=== PATIENT | female | born 1985 | race Caucasian/White ===

== ENCOUNTER 2018-03-01 16:17 | Inpatient (IN) | payer SELFPAY ==
[2018-03-01] MEDS ORDERED: 0.9 % SODIUM CHLORIDE 10 ML DISP.SYRIN. IV (16:45)
[2018-03-01] MEDS: ONDANSETRON PF 4 MG/2 ML VIAL. IV ×3 (17:00→21:42)
[2018-03-01] MEDS: IV NORMAL SALINE 1000ML BAG 1,000 ML IV ×2 (17:00→21:45)
[2018-03-01] MEDS: fentaNYL PF VIAL 100 MCG/2 ML VIAL IV ×8 (17:04→23:13)
[2018-03-01 17:14] LABS: ADD MAN DIFF? NO
[2018-03-01 17:17] LABS: BASO % 0 % (0-3); EOS # 0.2 x10^3/uL (0.0-0.7); EOS % 2 % (0-3); HEMATOCRIT 43.3 % (36.0-47.0); HEMOGLOBIN 14.6 g/dL (12.0-15.5); LYMPH # 1.5 x10^3/uL (1.0-4.8); LYMPH % 13 % (24-48); MEAN CORPUSCULAR HEMOGLOBIN 31 pg (25-35); MEAN CORPUSCULAR HGB CONC 34 g/dL (31-37); MEAN CORPUSCULAR VOLUME 92 fL (79-100); MONO # 0.6 x10^3/uL (0.0-1.1); MONO % 6 % (0-9); NEUT # 8.9 x10^3uL (1.8-7.7); NEUT % 79 % (31-73); PLATELET COUNT 284 x10^3/uL (140-400); RED BLOOD COUNT 4.72 x10^6/uL (3.50-5.40); RED CELL DISTRIBUTION WIDTH 14.1 % (11.5-14.5); WHITE BLOOD COUNT 11.3 x10^3/uL (4.0-11.0)
[2018-03-01 17:26] LABS: URINE HCG POC HCG NEGATIVE (Negative)
[2018-03-01 17:27] LABS: BILIRUBIN,URINE NEGATIVE (NEG); CLARITY,URINE CLEAR; COLOR,URINE YELLOW; GLUCOSE,URINE >=1000 mg/dL (NEG); NITRITE,URINE NEGATIVE (NEG); PROTEIN,URINE NEGATIVE (NEG-TRACE); UROBILINOGEN,URINE 0.2 mg/dL (0.2 mg/dL)
[2018-03-01 17:28] LABS: ANION GAP 12 (6-14); BLOOD UREA NITROGEN 11 mg/dL (7-20); CALCIUM 8.8 mg/dL (8.5-10.1); CARBON DIOXIDE 24 mmol/L (21-32); CHLORIDE 99 mmol/L (98-107); CREATININE 0.8 mg/dL (0.6-1.0); GFR 82.1; GLUCOSE 324 mg/dL (70-99); POTASSIUM 4.4 mmol/L (3.5-5.1); SODIUM 135 mmol/L (136-145)
[2018-03-01 17:32] LABS: BACTERIA,URINE FEW /HPF (0-FEW); RBC,URINE 0 /HPF (0-2); SQUAMOUS EPITHELIAL CELL,UR MOD /LPF; WBC,URINE RARE /HPF (0-4); YEAST,URINE PRESENT /HPF
[2018-03-01 17:34] LABS: ALBUMIN 3.5 g/dL (3.4-5.0); ALK PHOS 111 U/L (46-116); ALT (SGPT) 218 U/L (14-59); AST (SGOT) 199 U/L (15-37); DIRECT BILIRUBIN 0.2 mg/dL (0.0-0.2); LIPASE 280 U/L (73-393); TOTAL BILIRUBIN 0.8 mg/dL (0.2-1.0); TOTAL PROTEIN 7.7 g/dL (6.4-8.2)
[2018-03-01 17:36] LABS: TROPONINI < 0.017 ng/mL (0.000-0.055)
[2018-03-01 17:42] LABS: CKMB MASS 1.3 ng/mL (0.0-3.6); CREATINE KINASE 47 U/L (26-192)
[2018-03-01] MEDS: PIPERACILLIN/TAZOBACTAM 3.375 GM in IV NORMAL SALINE 50ML 50 ML IV (20:06)
[2018-03-01 22:16] LABS: POC GLUCOSE 227 mg/dL (70-99)
[2018-03-02] MEDS: KETOROLAC 30 MG/ML INJ. IV ×3 (00:07→11:43)
[2018-03-02] MEDS: PIPERACILLIN/TAZOBACTAM 3.375 GM in IV NORMAL SALINE 50ML 50 ML IV ×4 (00:07→17:53)
[2018-03-02] MEDS: IV NORMAL SALINE 1000ML BAG 1,000 ML IV ×2 (05:46→11:31)
[2018-03-02] MEDS: ONDANSETRON PF 4 MG/2 ML VIAL. IV (07:26)
[2018-03-02] MEDS: fentaNYL PF VIAL 100 MCG/2 ML VIAL IV ×4 (07:33→15:52)
[2018-03-02 07:55] LABS: POC GLUCOSE 214 mg/dL (70-99)
[2018-03-02] MEDS ORDERED: ONDANSETRON PF 4 MG/2 ML VIAL. IV (08:30)
[2018-03-02] MEDS ORDERED: fentaNYL PF VIAL 100 MCG/2 ML VIAL IV (08:30)
[2018-03-02] MEDS: IV RINGERS,LACTATED 1000ML 1,000 ML IV ×2 (08:30→15:10)
[2018-03-02] MEDS ORDERED: LIDOCAINE 1% PF 2 ML VIAL. ID (08:30)
[2018-03-02] MEDS ORDERED: DEXTROSE 50% 25 GM / 50ML DISP.SYRIN. IV (09:30)
[2018-03-02 11:39] LABS: POC GLUCOSE 161 mg/dL (70-99)
[2018-03-02] MEDS: INSULIN ASPART 300 UNITS/3 ML INSULN.PEN SQ ×3 (11:41→21:03)
[2018-03-02] MEDS: amLODIPine BESYLATE 10 MG TABLET PO (11:43)
[2018-03-02] MEDS: LACTOBACILLUS RHAMNOSUS GG 1 CAPSULE. PO ×2 (12:00→20:46)
[2018-03-02] MEDS ORDERED: SURGICEL HEMOSTAT 4X8 EACH. (12:06)
[2018-03-02] MEDS ORDERED: DEXAMETHASONE SOD PHOS 20 MG/5 ML VIAL. (13:21)
[2018-03-02] MEDS ORDERED: ROCURONIUM 50 MG/5 ML VIAL. (13:21)
[2018-03-02] MEDS ORDERED: fentaNYL PF VIAL 250 MCG/5 ML VIAL (13:21)
[2018-03-02] MEDS ORDERED: ONDANSETRON PF 4 MG/2 ML VIAL. (13:22)
[2018-03-02] MEDS ORDERED: PROPOFOL 20 ML IV (13:22)
[2018-03-02] MEDS: BUPIVACAINE-EPI 0.25%-1:200000 50 ML VIAL. (14:20)
[2018-03-02] MEDS: IOHEXOL 300 MG/ML 100ML VIAL. (14:20)
[2018-03-02] MEDS ORDERED: GLYCOPYRROLATE 1 MG/5 ML VIAL. (14:54)
[2018-03-02] MEDS ORDERED: KETOROLAC 30 MG/ML INJ FOR OR. INJ (14:54)
[2018-03-02] MEDS ORDERED: NEOSTIGMINE METHYLSULFATE 5 MG/5 ML SYRINGE. (14:54)
[2018-03-02] MEDS ORDERED: SEVOFLURANE 31 TO 60 MINUTES. IH (15:07)
[2018-03-02 15:09] LABS: POC GLUCOSE 197 mg/dL (70-99)
[2018-03-02] MEDS: PROCHLORPERAZINE 10 MG/2 ML VIAL. IV ×2 (15:13→15:51)
[2018-03-02] MEDS ORDERED: oxyCODONE/APAP 5/325 1 TAB TABLET PO (15:15)
[2018-03-02 16:42] LABS: POC GLUCOSE 239 mg/dL (70-99)
[2018-03-02] MEDS: oxyCODONE/APAP 5/325 1 TAB TABLET PO ×2 (17:59→22:00)
[2018-03-02 20:46] LABS: POC GLUCOSE 354 mg/dL (70-99)
[2018-03-02] MEDS: ACETAMINOPHEN 500 MG TABLET PO (20:46)
[2018-03-03] MEDS: PIPERACILLIN/TAZOBACTAM 3.375 GM in IV NORMAL SALINE 50ML 50 ML IV ×2 (00:10→06:08)
[2018-03-03 04:35] LABS: BASO # 0.1 x10^3/uL (0.0-0.2); BASO % 0 % (0-3); EOS % 0 % (0-3); HEMATOCRIT 40.4 % (36.0-47.0); HEMOGLOBIN 13.4 g/dL (12.0-15.5); LYMPH # 1.2 x10^3/uL (1.0-4.8); LYMPH % 7 % (24-48); MEAN CORPUSCULAR HEMOGLOBIN 31 pg (25-35); MEAN CORPUSCULAR HGB CONC 33 g/dL (31-37); MEAN CORPUSCULAR VOLUME 93 fL (79-100); MONO # 0.4 x10^3/uL (0.0-1.1); MONO % 2 % (0-9); NEUT % 91 % (31-73); PLATELET COUNT 285 x10^3/uL (140-400); RED BLOOD COUNT 4.35 x10^6/uL (3.50-5.40); RED CELL DISTRIBUTION WIDTH 14.3 % (11.5-14.5); WHITE BLOOD COUNT 17.7 x10^3/uL (4.0-11.0)
[2018-03-03 04:36] LABS: ADD MAN DIFF? YES
[2018-03-03] MEDS: oxyCODONE/APAP 5/325 1 TAB TABLET PO ×2 (04:40→08:30)
[2018-03-03 04:49] LABS: ANION GAP 9 (6-14); BLOOD UREA NITROGEN 11 mg/dL (7-20); CALCIUM 9.2 mg/dL (8.5-10.1); CARBON DIOXIDE 25 mmol/L (21-32); CHLORIDE 101 mmol/L (98-107); CREATININE 0.8 mg/dL (0.6-1.0); GFR 82.1; GLUCOSE 243 mg/dL (70-99); POTASSIUM 4.6 mmol/L (3.5-5.1); SODIUM 135 mmol/L (136-145)
[2018-03-03 07:10] LABS: % ATYL 2 % (0-0); % BANDS 4 % (0-9); % LYMPHS 6 % (24-48); % MONOS 1 % (0-10); % SEGS 87 % (35-66); PLT ESTIMATE ADEQUATE (ADEQUATE)
[2018-03-03] MEDS: amLODIPine BESYLATE 10 MG TABLET PO (08:17)
[2018-03-03] MEDS: LACTOBACILLUS RHAMNOSUS GG 1 CAPSULE. PO (08:17)
[2018-03-03] MEDS: INSULIN ASPART 300 UNITS/3 ML INSULN.PEN SQ (08:22)
[2018-03-03 08:26] LABS: POC GLUCOSE 247 mg/dL (70-99)
[2018-03-03 11:53] LABS: POC GLUCOSE 291 mg/dL (70-99)
== END 2018-03-03 12:12 | disposition home or self-care (01) | DRG 418 ==
LOC: ER 16:17 → 4 NORTH 20:42
PROC: 0FT44ZZ Resection of Gallbladder, Percutaneous Endoscopic Approach (ICD-10-PCS; principal; 2018-03-02 10:30)
PROC: BF101ZZ Fluoroscopy of Bile Ducts using Low Osmolar Contrast (ICD-10-PCS; 2018-03-02 10:30)
DX: K80.10 Calculus of gallbladder with chronic cholecystitis without obstruction (principal); Z68.41 Body mass index [BMI] 40.0-44.9, adult; K76.0 Fatty (change of) liver, not elsewhere classified; E11.9 Type 2 diabetes mellitus without complications; E28.2 Polycystic ovarian syndrome; E66.9 Obesity, unspecified; I10 Essential (primary) hypertension; Z82.49 Family history of ischemic heart disease and other diseases of the circulatory system; Z90.710 Acquired absence of both cervix and uterus; Z98.1 Arthrodesis status; Z88.5 Allergy status to narcotic agent
CPT/HCPCS: 36415; 74176; 74300; 76705; 80048; 80076; 81001; 81025; 82553; 82962; 83690; 84484; 85007; 85025; 88304; 93005; 96361; 96365; 96375; 99291; 99291-25; J0780; J1100; J1815; J1885; J2405; J2543; J2704; J2710; J3010; J3490; J7030; J7120; Q9967

== ENCOUNTER 2018-11-06 08:46 | Emergency (ER) | payer SELFPAY ==
[~2018-11-06] VITALS: Ht 172.7 cm; Wt 117.9 kg
[~2018-11-06 08:46] MED LIST: AMLO10TA6 PO; METF500T16 PO; OXYC1TAB7 PO
[2018-11-06] MEDS ORDERED: ONDANSETRON PF 4 MG/2 ML VIAL. ONE (09:23)
--- NOTE | 2018-11-06 09:28 | PHYS DOC ---
Past Medical History Past Medical History: Diabetes-Type II, Endometriosis, Hypertension, Migraines , Ovarian Cyst, Other Additional Past Medical Histor: PCOS Past Surgical History: Cholecystectomy, , Other Additional Past Surgical Histo: OVARIAN CYST REMOVAL, SPINAL FUSION, LUMBAR HAYDE, SHOULDER SCOPE Alcohol Use: Rarely Drug Use: None Adult General Chief Complaint Chief Complaint: HEADACHE HPI HPI Patient is a 33 year old female who is presenting to the emergency Department today with complaints of a sudden onset of a severe headache that feels like pressure in her entire head. Patient states she was having intercourse this morning when the symptoms began. She has a history of high blood pressure and has not been taking her medication for the last 6 weeks. She has been trying to control her diabetes and her high blood pressure through diet and weight loss measures. She denies any numbness, tingling, weakness, confusion, problems with coordination. She denies any vision changes. She reports history of migraines states that this is not like previous headaches that she has ever had. Her only other symptoms besides head pain is nausea and vomiting. She has IUD in place and denies any concerns of , states that her last menstrual period was approximately 3 weeks ago. Review of Systems Review of Systems Constitutional: Denies fever or chills [] Eyes: Denies change in visual acuity, redness, or eye pain [] Cardiovascular: Denies chest pain GI: Denies abdominal pain, or diarrhea; reports nausea and vomiting Neurologic: See HPI Complete systems were reviewed and found to be within normal limits, except as documented in this note. Current Medications Current Medications Current Medications Medications (Trade) Dose Ordered Sig/Guy Start Time Stop Time Status Last Admin Dose Admin Dexamethasone Sodium Phosphate (Decadron) 10 mg 1X ONCE 11/06/18 12:30 11/06/18 12:31 DC 11/06/18 12:42 10 MG Fentanyl Citrate (Fentanyl 2ml Vial) 50 mcg 1X ONCE 11/06/18 09:30 11/06/18 09:31 DC 11/06/18 09:42 50 MCG Ketorolac Tromethamine (Toradol 15mg Vial) 15 mg 1X ONCE 11/06/18 12:30 11/06/18 12:31 DC 11/06/18 12:42 15 MG Labetalol HCl (Normodyne Iv Push) 10 mg 1X ONCE 11/06/18 11:00 12/13/18 11:01 DC 11/06/18 11:45 10 MG Lidocaine HCl 10 ml 1X ONCE 11/06/18 10:00 11/06/18 10:01 DC 11/06/18 11:35 10 ML Ondansetron HCl (Zofran) 4 mg STK-MED ONCE 11/06/18 09:23 11/06/18 09:25 DC Orphenadrine Citrate (Norflex) 60 mg 1X ONCE 11/06/18 12:30 11/06/18 12:31 DC 11/06/18 12:42 60 MG Prochlorperazine Edisylate (Compazine) 10 mg 1X ONCE 11/06/18 10:45 11/06/18 10:46 DC 11/06/18 11:31 10 MG Sodium Chloride 500 ml @ 500 mls/hr 1X ONCE 11/06/18 12:30 11/06/18 13:29 DC 11/06/18 12:41 500 MLS/HR Allergies Allergies Allergies Coded Allergies Type Severity Reaction Last Updated Verified morphine Allergy Intermediate Itching 11/06/18 Yes Physical Exam Physical Exam Constitutional: Well developed, well nourished, no acute distress, non-toxic appearance, obese [] HENT: Normocephalic, atraumatic, bilateral external ears normal, oropharynx moist, no oral exudates, nose normal. [] Eyes: PERRLA, EOMI, no nystagmus, conjunctiva normal, no discharge. [] Neck: Normal range of motion, no tenderness, supple, no stridor. [] Cardiovascular:Heart rate regular rhythm, no murmur [] Lungs & Thorax: Bilateral breath sounds clear to auscultation [] Skin: Warm, dry, no erythema, no rash. [] Extremities: No tenderness, no cyanosis, no clubbing, ROM intact, no edema. [] Neurologic: Alert and oriented X 3, normal motor function, normal sensory function, no focal deficits noted, equal strength bilat [] Psychologic: Affect normal, judgement normal, mood normal. [] Current Patient Data Vital Signs Vital Signs Date Time Temp Pulse Resp B/P (MAP) Pulse Ox O2 Delivery O2 Flow Rate FiO2 11/06/18 14:05 89 16 84 11/06/18 11:45 184/84 11/06/18 09:42 Room Air 11/06/18 09:05 97.4 97.4 Lab Values Laboratory Tests Test 11/06/18 09:06 11/06/18 09:17 11/06/18 09:20 11/06/18 11:12 Urine Collection Type Unknown Urine Color Yellow Urine Clarity Clear Urine pH 7.0 Urine Specific Maud 1.020 Urine Protein 30 mg/dL (NEG-TRACE) Urine Glucose (UA) >=1000 mg/dL (NEG) Urine Ketones (Stick) 40 mg/dL (NEG) Urine Blood Negative (NEG) Urine Nitrite Negative (NEG) Urine Bilirubin Negative (NEG) Urine Urobilinogen Dipstick 0.2 mg/dL (0.2 mg/dL) Urine Leukocyte Esterase Negative (NEG) Urine RBC 0 /HPF (0-2) Urine WBC Occ /HPF (0-4) Urine Squamous Epithelial Cells Few /LPF Urine Bacteria 0 /HPF (0-FEW) POC Urine HCG, Qualitative Hcg negative (Negative) White Blood Count 8.1 x10^3/uL (4.0-11.0) Red Blood Count 4.64 x10^6/uL (3.50-5.40) Hemoglobin 14.7 g/dL (12.0-15.5) Hematocrit 42.7 % (36.0-47.0) Mean Corpuscular Volume 92 fL (79-100) Mean Corpuscular Hemoglobin 32 pg (25-35) Mean Corpuscular Hemoglobin Concent 34 g/dL (31-37) Red Cell Distribution Width 12.5 % (11.5-14.5) Platelet Count 226 x10^3/uL (140-400) Neutrophils (%) (Auto) 72 % (31-73) Lymphocytes (%) (Auto) 21 % (24-48) L Monocytes (%) (Auto) 4 % (0-9) Eosinophils (%) (Auto) 2 % (0-3) Basophils (%) (Auto) 1 % (0-3) Neutrophils # (Auto) 5.9 x10^3uL (1.8-7.7) Lymphocytes # (Auto) 1.7 x10^3/uL (1.0-4.8) Monocytes # (Auto) 0.4 x10^3/uL (0.0-1.1) Eosinophils # (Auto) 0.2 x10^3/uL (0.0-0.7) Basophils # (Auto) 0.1 x10^3/uL (0.0-0.2) Prothrombin Time 12.8 SEC (11.7-14.0) Prothrombin Time INR 1.0 (0.8-1.1) Sodium Level 136 mmol/L (136-145) Potassium Level 3.6 mmol/L (3.5-5.1) Chloride Level 101 mmol/L (98-107) Carbon Dioxide Level 25 mmol/L (21-32) Anion Gap 10 (6-14) Blood Urea Nitrogen 9 mg/dL (7-20) Creatinine 0.8 mg/dL (0.6-1.0) Estimated GFR (Cockcroft-Gault) 81.6 BUN/Creatinine Ratio 11 (6-20) Glucose Level 242 mg/dL (70-99) H Calcium Level 9.0 mg/dL (8.5-10.1) Total Bilirubin 0.5 mg/dL (0.2-1.0) Aspartate Amino Transferase (AST) 21 U/L (15-37) Alanine Aminotransferase (ALT) 33 U/L (14-59) Alkaline Phosphatase 79 U/L (46-116) Total Protein 7.9 g/dL (6.4-8.2) Albumin 3.7 g/dL (3.4-5.0) Albumin/Globulin Ratio 0.9 (1.0-1.7) L CSF Color Colorless CSF Clarity Clear CSF WBC 0 CSF RBC 1 CSF Glucose 113 mg/dL (37-70) H CSF Total Protein 40.1 mg/dL (15.0-45.0) Laboratory Tests 11/06/18 09:20 Laboratory Tests 11/06/18 09:20 EKG EKG [] Radiology/Procedures Radiology/Procedures [] Course & Med Decision Making Course & Med Decision Making Pertinent Labs and Imaging studies reviewed. (See chart for details) Dx: migraine, hypertension CT head was negative for parenchymal bleed, subarachnoid hemorrhage, or acute findings. Lumbar puncture was completed by Dr. Lopez the CSF is negative for xanthochromia and reports 1 RBC present. BP improved after medications. Pt reports pain decreased to 4/10 after mediations, states she is feeling better. Encouraged patient to test her blood pressure twice daily keeping a log of BP and resume taking her BP medications as prescribed. Rx for fiorcet tablets prn FAIR. Follow up with PCP re: HTN and migraines. Return to ER if symptoms worsen. Patient verbalized an understanding of home care, medications, follow-up, and return to ED instructions and was in agreement with the plan of care. renata: Lumbar puncture procedure note: Verbal consent and informed consent was obtained patient was anticipated to be a difficult procedure I did place her in the vertical position prepped and draped usual fashion lidocaine subcutaneous anesthesia 20-gauge needle was inserted first into the L2-3 interspace 2 attempts were made ultimately I did get clear CSF patient tolerated very well sent for labs. no signs of SAH on interpretation. probably migraine bp control improved headache and usual treatement in er [] Dragon Disclaimer Dragon Disclaimer This electronic medical record was generated, in whole or in part, using a voice recognition dictation system. Departure Departure Impression: Primary Impression: Migraine Additional Impression: Hypertension Disposition: HOME, SELF-CARE Condition: STABLE Referrals: JOSÉ ANTONIO DAVIS DO (PCP) Patient Instructions: Hypertension, Migraine Headache, [id number] Additional Instructions: Fill the prescription and use it as directed. Recommend he keep track of your high blood pressure in the intake your blood pressure medication as previously prescribed. Home to rest, avoid exposure to screens as they may increase the severity of her symptoms. Follow-up with your primary care doctor about your high blood pressure and continued migraines. Return to the emergency room if the symptoms worsen.. Scripts Butalb/Acetaminophen/Caffeine (FLTTIR-[id number] 50-325-40) 1 Each Tablet 1 EACH PO Q4-6HRS PRN for PAIN MDD 6 tablets, #30 TAB 0 Refills Prov: DANTE BOATENG ENGRAVER [employer] 11/06/18 Problem Qualifiers Primary Impression: Migraine Migraine type: unspecified Status migrainosus presence: without status migrainosus Intractability: not intractable Qualified Codes: G43.909 - Migraine, unspecified, not intractable, without status migrainosus Additional Impression: Hypertension Hypertension type: unspecified Qualified Codes: I10 - Essential (primary) hypertension DANTE BOATENG APRN Nov 06, 2018 09:28 YISEL LOPEZ MD Nov 06, 2018 16:35
[2018-11-06] MEDS ORDERED: ONDANSETRON PF 4 MG/2 ML VIAL. IV ONE (09:30)
[2018-11-06] MEDS ORDERED: LABETALOL 20 MG/4 ML DISP.SYRIN. IVP ONE ×3 (09:30→11:00)
[2018-11-06] MEDS ORDERED: fentaNYL PF VIAL 100 MCG/2 ML VIAL IV ONE (09:30)
[2018-11-06 09:36] LABS: CREATININE 0.8 mg/dL (0.6-1.0); GFR 81.6; POTASSIUM 3.6 mmol/L (3.5-5.1)
[2018-11-06 09:36] LABS: BILIRUBIN,URINE NEGATIVE (NEG); CLARITY,URINE CLEAR; COLOR,URINE YELLOW; NITRITE,URINE NEGATIVE (NEG); PROTEIN,URINE 30 mg/dL (NEG-TRACE); UROBILINOGEN,URINE 0.2 mg/dL (0.2 mg/dL)
[2018-11-06 09:40] LABS: BASO # 0.1 x10^3/uL (0.0-0.2); BASO % 1 % (0-3); EOS # 0.2 x10^3/uL (0.0-0.7); EOS % 2 % (0-3); HEMATOCRIT 42.7 % (36.0-47.0); HEMOGLOBIN 14.7 g/dL (12.0-15.5); LYMPH # 1.7 x10^3/uL (1.0-4.8); LYMPH % 21 % (24-48); MEAN CORPUSCULAR HEMOGLOBIN 32 pg (25-35); MEAN CORPUSCULAR HGB CONC 34 g/dL (31-37); MEAN CORPUSCULAR VOLUME 92 fL (79-100); MONO # 0.4 x10^3/uL (0.0-1.1); MONO % 4 % (0-9); NEUT # 5.9 x10^3uL (1.8-7.7); NEUT % 72 % (31-73); PLATELET COUNT 226 x10^3/uL (140-400); RED BLOOD COUNT 4.64 x10^6/uL (3.50-5.40); RED CELL DISTRIBUTION WIDTH 12.5 % (11.5-14.5); WHITE BLOOD COUNT 8.1 x10^3/uL (4.0-11.0)
[2018-11-06 09:42] LABS: ALBUMIN 3.7 g/dL (3.4-5.0); ALBUMIN/GLOBULIN RATIO 0.9 (1.0-1.7); PROTHROMBIN TIME PATIENT 12.8 SEC (11.7-14.0); TOTAL BILIRUBIN 0.5 mg/dL (0.2-1.0); TOTAL PROTEIN 7.9 g/dL (6.4-8.2)
--- NOTE | 2018-11-06 09:44 | RAD ---
PQRS Compliance statement: One or more of the following individualized dose reduction techniques were utilized for this examination: 1. Automated exposure control. 2. Adjustment of the mA and/or kV according to patient size. 3. Use of iterative reconstruction technique. Indication:FAIR AFTER INTERCOURSE THIS AM ELEVATED BP PREV SENT TECHNIQUE: CT head without IV contrast COMPARISON:02/12/2008 FINDINGS: No pathologic extra-axial or intra-axial fluid collection. The ventricles and basal cisterns are within normal limits. No acute intracranial bleed. No focal loss of fountain-white differentiation. Visualized orbits within normal limits. No suspicious calvarial lesion. Visualized paranasal sinuses and mastoid air cells are clear. IMPRESSION: No acute intracranial process. Electronically signed by: Bayron Ayala DO (11/06/2018 9:40 AM) [facility]
[2018-11-06 09:48] LABS: SQUAMOUS EPITHELIAL CELL,UR FEW /LPF
[2018-11-06 09:49] LABS: BACTERIA,URINE 0 /HPF (0-FEW); RBC,URINE 0 /HPF (0-2); WBC,URINE OCC /HPF (0-4)
[2018-11-06] MEDS ORDERED: LIDOCAINE 2% 20 ML VIAL. IJ ONE (10:00)
--- NOTE | 2018-11-06 10:42 | EKG ---
[facility] [address] [place] [address] Test Date: 2018-11-06 Test Time: 09:16:57 Pat Name: BENITA EWING Department: Room: Gender: F Sample Puller: : 1985 Requested By: DANTE BOATENG Order Number: [id number] Reading MD: Measurements Intervals Napoleon Rate: 67 P: 0 VT: 134 QRS: 1 QRSD: 94 T: 15 QT: 434 QTc: 462 Interpretive Statements SINUS RHYTHM NORMAL ECG RI6.01 No previous ECG available for comparison
[2018-11-06] MEDS ORDERED: PROCHLORPERAZINE 10 MG/2 ML VIAL. IV ONE (10:45)
[2018-11-06 11:52] LABS: CSF COLOR COLORLESS
[2018-11-06 11:53] LABS: CSF CLARITY CLEAR; CSF RBC COUNT 1; CSF WBC COUNT 0
[2018-11-06 12:00] LABS: CSF PROTEIN 40.1 mg/dL (15.0-45.0)
[2018-11-06] MEDS ORDERED: DEXAMETHASONE SOD PHOS 20 MG/5 ML VIAL. IV ONE (12:30)
[2018-11-06] MEDS ORDERED: IV NORMAL SALINE 500ML BAG 500 ML IV ONE (12:30)
[2018-11-06] MEDS ORDERED: ORPHENADRINE CITRATE 60 MG/2 ML VIAL. IV ONE (12:30)
[2018-11-06] MEDS ORDERED: KETOROLAC 15 MG/ML VIAL. IV ONE (12:30)
[2018-11-06] MEDS ORDERED: BUTA1TAB23 PO (13:43)
[2018-11-06 14:05] VITALS: BP 155/94
== END 2018-11-06 14:09 | disposition home or self-care (01) ==
LOC: ER 08:46
DX: G43.909 Migraine, unspecified, not intractable, without status migrainosus (principal); I10 Essential (primary) hypertension; R11.2 Nausea with vomiting, unspecified; E11.9 Type 2 diabetes mellitus without complications; R63.4 Abnormal weight loss; Z68.39 Body mass index [BMI] 39.0-39.9, adult; Z88.5 Allergy status to narcotic agent; Z90.49 Acquired absence of other specified parts of digestive tract; Z98.890 Other specified postprocedural states
CPT/HCPCS: 36415; 62270; 70450; 80053; 81001; 81025; 82945; 84157; 85025; 85610; 89051; 93005; 96361; 96374; 96375; 96376; 99284; J0780; J1100; J1885; J2001; J2360; J2405; J3010; J3490; J7040

== ENCOUNTER 2021-12-08 09:54 | Emergency (ER) | payer SELFPAY ==
[~2021-12-08] VITALS: Ht 165.1 cm; Wt 128.0 kg
[~2021-12-08 09:54] MED LIST changes: +AMLO-187 PO; -AMLO10TA6 PO; +BUTA1TAB23 PO
[2021-12-08] MEDS ORDERED: IV NORMAL SALINE 1000ML BAG 1,000 ML IV ONE (10:15)
[2021-12-08] MEDS ORDERED: diphenhydrAMINE 50 MG/ML VIAL IVP ONE (10:15)
[2021-12-08] MEDS ORDERED: IOHEXOL 300 MG/ML 100ML VIAL. IV ONE (10:15)
[2021-12-08] MEDS ORDERED: LABETALOL 20 MG/4 ML DISP.SYRIN. IVP ONE (10:15)
[2021-12-08] MEDS ORDERED: PROCHLORPERAZINE 10 MG/2 ML VIAL. IV ONE (10:15)
--- NOTE | 2021-12-08 10:23 | PHYS DOC ---
Past Medical History Past Medical History: Diabetes-Type II, Endometriosis, Hypertension, Migraines, Ovarian Cyst, Other Additional Past Medical Histor: PCOS Past Surgical History: No Surgical History Additional Past Surgical Histo: OVARIAN CYST REMOVAL, SPINAL FUSION, LUMBAR HAYDE, SHOULDER SCOPE Smoking Status: Never Smoker Alcohol Use: Rarely Drug Use: None General Adult EDM: Chief Complaint: HEADACHE HPI: HPI: Patient is a 36 year old female who presents with severe thunderclap headache. Patient was taking her child to her fee clerk when she had her headache started at approximately 8:58 AM. States that it reached a maximum intensity in the first minute. She had a depressed level of consciousness, and has been vomiting. Pain is throbbing. Radiates towards the base of her skull. Does have headache/neck pain worsening with head movement. No fevers or chills. EMS reported that her level of consciousness is waxing and waning. She states she has had some blurred vision, but denies any numbness, tingling, or extremity weakness. Denies ever having a headache this severe. Has had migraines in the past, but this is very different. States that she has had preeclampsia in the past, but has not been on antihypertensives outside of . Does not think that she is currently . No trauma. Review of Systems: Review of Systems: Constitutional: Denies fever or chills. [] Eyes: Reports blurry vision HENT: Denies nasal congestion or sore throat. Reports neck pain. [] Respiratory: Denies cough or shortness of breath. [] Cardiovascular: Denies chest pain or edema. [] GI: Reports nausea and vomiting. Denies abdominal pain : Denies dysuria. [] Integument: Denies rash. [] Neurologic: Report severe headache Endocrine: Denies polyuria or polydipsia. [] Lymphatic: Denies swollen glands. [] Psychiatric: Denies depression or anxiety. [] Heart Score: C/O Chest Pain: No Current Medications: Current Medications Medications (Trade) Dose Ordered Sig/Guy Start Time Stop Time Status Last Admin Dose Admin Diphenhydramine HCl (Benadryl) 25 mg 1X ONCE 12/08/21 10:15 12/08/21 10:16 Labetalol HCl (Normodyne Iv Push) 20 mg 1X ONCE 12/08/21 10:15 12/08/21 10:16 Prochlorperazine Edisylate (Compazine) 10 mg 1X ONCE 12/08/21 10:15 12/08/21 10:16 Sodium Chloride 1,000 ml @ 1,000 mls/hr 1X ONCE 12/08/21 10:15 12/08/21 11:14 Allergies: Allergies: Allergies Coded Allergies Type Severity Reaction Last Updated Verified morphine Allergy Intermediate Itching 12/08/21 Yes Physical Exam: PE: Constitutional: Dry heaving, crying. HENT: Normocephalic, atraumatic Eyes: PERRLA, EOMI, conjunctiva normal, no discharge. [] Neck: Pain with active range of motion, but can flex neck to chest. No evidence of rigidity. Cardiovascular:Heart rate regular rhythm, no murmur [] Lungs & Thorax: Bilateral breath sounds clear to auscultation [] Abdomen: Soft, nontender Skin: Warm, dry, no erythema, no rash. [] Extremities: No tenderness, no cyanosis, no clubbing, ROM intact, no edema. [] Neurologic: GCS 14 (eyes closed, opens to voice). Waxing and waning level of consciousness, occasionally close her eyes and goes limp. During these episodes she does continue to follow commands and tracks my fingers with her eyes. Face symmetric. EOMI. Pupils 3 mm, equal round reactive. Speech intact without aphasia or dysarthria Sensation grossly intact bilateral face and upper and lower extremities. Equal strength in all 4 extremities. She eventually dropped all 4 extremities to the bed on drift testing. I did not see any abnormal pronation. Psychologic: Affect normal, judgement normal, mood normal. [] Current Patient Data: Vital Signs: Vital Signs Date Time Temp Pulse Resp B/P (MAP) Pulse Ox O2 Delivery O2 Flow Rate FiO2 12/08/21 10:05 98.2 56 15 190/105 (133) 98 Room Air 98.2 EKG: EKG: [] Radiology/Procedures: Radiology/Procedures: [] Impression: [facility] [address] [place] [address] IMAGING REPORT Signed PATIENT: BENITA EWING ACCOUNT: [id number] : 1985 LOCATION: ER AGE: 36 SEX: F EXAM STATUS: PRE ER ORD. PHYSICIAN: NAFISA TORREZ MD REASON: thunderclap headache PROCEDURE: CT HEAD WO CONTRAST Exam Date: 12/08/2021 10:16 AM CTA HEAD AND NECK W/WO CONTRAST, CT HEAD/BRAIN WO Indication: Reason: thunderclap headache / Spl. Instructions: omni 300 75ml / History: . TECHNIQUE: Head CT was performed without intravenous contrast. One or more of the following dose reduction techniques were utilized: *Automated exposure control (AEC) *Adjustment of mA and/or kV according to patient size *Use of iterative reconstruction technique *CT scan done according to ALARA, or ALARA/IMAGE GENTLY COMPARISON: November 06, 2018 FINDINGS: The ventricles and sulci are normal for the patient's stated age. There is no evidence of acute intracranial hemorrhage, extra-axial collection, mass effect, midline shift, or acute territorial infarct. No lesion of the skull base or the calvarium is seen. The visualized paranasal sinuses, mastoid air cells and orbits are normal in appearance. IMPRESSION: No evidence for acute intracranial abnormality. Exam Date: 12/08/2021 10:16 AM CTA HEAD AND NECK W/WO CONTRAST, CT HEAD/BRAIN WO Indication: Reason: thunderclap headache / Spl. Instructions: omni 300 75ml / History: . TECHNIQUE: CT angiogram of the head was performed before and following the administration of nonionic intravenous contrast. Three-dimensional maximal intensity projection reformatted images and source images were created on an independent workstation and reviewed to assist with clinical management. One or more of the following dose reduction techniques were utilized: *Automated exposure control (AEC) *Adjustment of mA and/or kV according to patient size *Use of iterative reconstruction technique *CT scan done according to ALARA, or ALARA/IMAGE GENTLY FINDINGS: The distal vertebral, basilar, distal internal carotid, and proximal anterior/posterior/middle cerebral arteries are patent. No stenotic or occlusive lesion, aneurysm, or arteriovenous malformation identified. The ventricles and sulci are normal for the patient's stated age. There is no evidence of acute intracranial hemorrhage, extra-axial collection, mass effect, midline shift, or acute territorial infarct. No lesion of the skull base or the calvarium is seen. The visualized paranasal sinuses, mastoid air cells and orbits are normal in appearance. IMPRESSION: No evidence of large vessel occlusion. No evidence for acute intracranial abnormality. Exam Date: 12/08/2021 10:16 AM CTA HEAD AND NECK W/WO CONTRAST, CT HEAD/BRAIN WO Indication: Reason: thunderclap headache / Spl. Instructions: omni 300 75ml / History: Technique: CT angiogram of the neck was performed before and following the administration of nonionic intravenous contrast. Three-dimensional maximum intensity projection reformatted images were created on an independent workstation and reviewed along with source images to assist with clinical management. One or more of the following dose reduction techniques were utilized: *Automated exposure control (AEC) *Adjustment of mA and/or kV according to patient size *Use of iterative reconstruction technique *CT scan done according to ALARA, or ALARA/IMAGE GENTLY Findings: Examination of the aortic arch demonstrates normal origins of the right brachiocephalic, left common carotid and left subclavian arteries. The origin of the right common carotid artery is normal. The common carotid, internal carotid, and external carotid arteries, as well as the carotid bifurcations, are normal bilaterally. The vertebral arteries are normal bilaterally. No evidence of focal stenosis, aneurysmal dilatation, or dissection in the visualized arteries of the neck. Impression: No evidence of large vessel occlusion. Note: Stenosis was evaluated using NASCET criteria. Electronically signed by: Osmar Scott MD (12/08/2021 10:53 AM) [facility] DICTATED and SIGNED BY: OSMAR SCOTT MD DATE: 12/08/21 [id number] 0 Course & Med Decision Making: Course & Med Decision Making Pertinent Labs and Imaging studies reviewed. (See chart for details) Patient a 36-year-old female who presents with thunderclap headache, waxing/waning levels of consciousness. Symptoms began approximate 8:58 AM. On arrival exam as above without focal weakness, but witha waxing/waning level of consciousness, hypertensive to 190s systolic. Concern for subarachnoid hemorrhage, hypertensive hemorrhage, cervical artery dissection. Could potentially be cerebral venous thrombosis, however no risk factors identified aside for age/gender. No fever to suggest meningitis. Will obtain CT/CTA. Given timing of onset, CT imaging should be sufficient to rule out SAH without further work up (such as LP). Will give labetalol IV for hypertension. 1022 CT/CTA negative. Labs with mild hypochloremia/hyponatremia and mild leukocytosis 11.8k. Both likely stress/vomiting reaction. negative. 1122 Headache vastly improved. Mild dull headache remains after Compazine and Benadryl. Will give ketorolac. Mental status has returned to normal, neurologic exam is normal. Blood pressure still elevated ~200 SBP after labetalol although HR is now in 50s. Will hold on further treatment now that SAH/ICH has been eliminated. Will start on chlorthalidone and advise close outpatient follow up. Patient expresses understanding of plan. 1148 SBP now 195 but no evidence of end organ damage such as hypertensive hemorrhage, hypertensive encephalopathy, JOSSE, heart failure, ACS. Will discharge with 25 mg daily chlorthalidone and plan as above. 1237 Ellen Disclaimer: Ellen Disclaimer: This electronic medical record was generated, in whole or in part, using a voice recognition dictation system. Departure Departure Impression: Primary Impression: Thunderclap headache Additional Impression: Hypertension Disposition: 01 HOME / SELF CARE / HOMELESS Condition: STABLE Referrals: JOSÉ ANTONIO DAVIS DO (PCP) Call today to form a plan for follow-up for your high blood pressure in the emergency department. Patient Instructions: Hypertension Additional Instructions: The CT scans of your head were very reassuring against dangerous causes of your headache. If you develop new symptoms such as high fevers/shaking chills, worsening neck pain, numbness/tingling in your arms/legs, weakness of your arms/legs, severe vision or speech changes, or other new/concerning symptoms please return to the emergency department immediately for reevaluation. Otherwise, please follow-up with your primary care doctor regarding your high blood pressure seen today. I would like you to start taking a new medication called chlorthalidone 25 mg once a day. Please continue this until you can see your primary care doctor or until they instruct you to do otherwise. Scripts Chlorthalidone (CHLORTHALIDONE ) 25 Mg Tablet 25 MG PO DAILY for DIURETIC for 30 Days, #30 TAB 0 Refills Prov: NAFISA TORREZ MD 12/08/21 NAFISA TORREZ MD Dec 08, 2021 10:23
[2021-12-08] MEDS ORDERED: CONTRAST GIVEN. MC PRN (10:30)
[2021-12-08 10:34] LABS: CALCIUM 8.9 mg/dL (8.5-10.1); CREATININE 0.9 mg/dL (0.6-1.0); GFR 70.1; POTASSIUM 3.5 mmol/L (3.5-5.1)
[2021-12-08 10:37] LABS: BASO # 0.1 x10^3/uL (0.0-0.2); BASO % 1 % (0-3); EOS % 0 % (0-3); HEMATOCRIT 38.4 % (36.0-47.0); HEMOGLOBIN 12.8 g/dL (12.0-15.5); LYMPH # 2.1 x10^3/uL (1.0-4.8); LYMPH % 18 % (24-48); MEAN CORPUSCULAR HEMOGLOBIN 30 pg (25-35); MEAN CORPUSCULAR HGB CONC 33 g/dL (31-37); MEAN CORPUSCULAR VOLUME 89 fL (79-100); MONO # 0.6 x10^3/uL (0.0-1.1); MONO % 5 % (0-9); NEUT # 8.9 x10^3/uL (1.8-7.7); NEUT % 76 % (31-73); PLATELET COUNT 294 x10^3/uL (140-400); RED BLOOD COUNT 4.31 x10^6/uL (3.50-5.40); RED CELL DISTRIBUTION WIDTH 14.3 % (11.5-14.5); WHITE BLOOD COUNT 11.8 x10^3/uL (4.0-11.0)
[2021-12-08 10:40] LABS: ALBUMIN 3.6 g/dL (3.4-5.0); ALBUMIN/GLOBULIN RATIO 0.8 (1.0-1.7); TOTAL BILIRUBIN 0.5 mg/dL (0.2-1.0); TOTAL PROTEIN 8.1 g/dL (6.4-8.2)
--- NOTE | 2021-12-08 10:56 | RAD ---
Exam Date: 12/08/2021 10:16 AM CTA HEAD AND NECK W/WO CONTRAST, CT HEAD/BRAIN WO Indication: Reason: thunderclap headache / Spl. Instructions: omni 300 75ml / History: . TECHNIQUE: Head CT was performed without intravenous contrast. One or more of the following dose re duction techniques were utilized: *Automated exposure control (AEC) *Adjustment of mA and/or kV according to patient size *Use of iterative reconstruction technique *CT scan done according to ALARA, or IRAJ/IMAGE GENTLY COMPARISON: November 06, 2018 FINDINGS: The ventricles and sulci are normal for the patient's stated age. There is no evidence of acute int racranial hemorrhage, extra-axial collection, mass effect, midline shift, or acute territorial infarc t. No lesion of the skull base or the calvarium is seen. The visualized paranasal sinuses, mastoid ai r cells and orbits are normal in appearance. IMPRESSION: No evidence for acute intracranial abnormality. Exam Date: 12/08/2021 10:16 AM CTA HEAD AND NECK W/WO CONTRAST, CT HEAD/BRAIN WO Indication: Reason: thunderclap headache / Spl. Instructions: omni 300 75ml / History: . TECHNIQUE: CT angiogram of the head was performed before and following the administration of nonionic intravenous contrast. Three-dimensional maximal intensity projection reformatted images and source i mages were created on an independent workstation and reviewed to assist with clinical management. O ne or more of the following dose reduction techniques were utilized: *Automated exposure control (AEC) *Adjustment of mA and/or kV according to patient size *Use of iterative reconstruction technique *CT scan done according to ALARA, or IRAJ/IMAGE GENTLY FINDINGS: The distal vertebral, basilar, distal internal carotid, and proximal anterior/posterior/middle cerebr al arteries are patent. No stenotic or occlusive lesion, aneurysm, or arteriovenous malformation iden tified. The ventricles and sulci are normal for the patient's stated age. There is no evidence of acute int racranial hemorrhage, extra-axial collection, mass effect, midline shift, or acute territorial infarc t. No lesion of the skull base or the calvarium is seen. The visualized paranasal sinuses, mastoid ai r cells and orbits are normal in appearance. IMPRESSION: No evidence of large vessel occlusion. No evidence for acute intracranial abnormality. Exam Date: 12/08/2021 10:16 AM CTA HEAD AND NECK W/WO CONTRAST, CT HEAD/BRAIN WO Indication: Reason: thunderclap headache / Spl. Instructions: omni 300 75ml / History: Technique: CT angiogram of the neck was performed before and following the administration of nonionic intravenous contrast. Three-dimensional maximum intensity projection reformatted images were creat ed on an independent workstation and reviewed along with source images to assist with clinical manage ment. One or more of the following dose reduction techniques were utilized: *Automated exposure control (AEC) *Adjustment of mA and/or kV according to patient size *Use of iterative reconstruction technique *CT scan done according to ALARA, or ALARA/IMAGE GENTLY Findings: Examination of the aortic arch demonstrates normal origins of the right brachiocephalic, left common carotid and left subclavian arteries. The origin of the right common carotid artery is normal. The co mmon carotid, internal carotid, and external carotid arteries, as well as the carotid bifurcations, a re normal bilaterally. The vertebral arteries are normal bilaterally. No evidence of focal stenosis, aneurysmal dilatation, or dissection in the visualized arteries of the neck. Impression: No evidence of large vessel occlusion. Note: Stenosis was evaluated using NASCET criteria. Electronically signed by: Loc Scott MD (12/08/2021 10:53 AM) [facility]
[2021-12-08 10:58] LABS: BILIRUBIN,URINE NEGATIVE (NEG); CLARITY,URINE CLEAR; COLOR,URINE YELLOW; NITRITE,URINE NEGATIVE (NEG); PH,URINE 7.5 (<5.0-8.0); PROTEIN,URINE 100 mg/dL (NEG-TRACE); UROBILINOGEN,URINE 0.2 mg/dL (0.2 mg/dL)
[2021-12-08 11:04] LABS: U PREG PATIENT NEGATIVE (NEG)
[2021-12-08 11:34] LABS: BACTERIA,URINE 0 /HPF (0-FEW); RBC,URINE OCC /HPF (0-2); WBC,URINE 0 /HPF (0-4)
[2021-12-08] MEDS ORDERED: CHLO25TA10 PO (11:51)
[2021-12-08 11:58] VITALS: BP 202/97
[2021-12-08] MEDS ORDERED: KETOROLAC 30 MG/ML VIAL. IVP ONE (12:00)
[2021-12-08] MEDS ORDERED: CHLORTHALIDONE 25 MG TABLET. PO SCH (12:00)
== END 2021-12-08 13:02 | disposition home or self-care (01) ==
LOC: ER 09:54
DX: G44.53 Primary thunderclap headache (principal); I10 Essential (primary) hypertension; E11.9 Type 2 diabetes mellitus without complications; G43.909 Migraine, unspecified, not intractable, without status migrainosus; Z88.5 Allergy status to narcotic agent
CPT/HCPCS: 36415; 70450; 70496; 70498; 80053; 81001; 81025; 85025; 96361; 96374; 96375; 99285; J0780; J1200; J1885; J3490; J7030; Q9967